=== PATIENT | female | born 1995 | race Caucasian/White ===

== ENCOUNTER → 2020-05-10 | Outpatient (CLI) | payer OTHER ==
[~2020-05-10] MED LIST: OMNIPAQUE 350 MG/ML, 100ML BOTTLE ONE
== END | disposition home or self-care (01) ==
LOC: RAD 14:10
PROVIDERS: ATTEND Family Medicine
DX: K82.0 Obstruction of gallbladder (principal); R16.1 Splenomegaly, not elsewhere classified; N83.202 Unspecified ovarian cyst, left side
CPT/HCPCS: 74177; Q9967